=== PATIENT | female | born 1975 | race Caucasian/White ===

== ENCOUNTER 2017-08-01 17:20 | Emergency (ER) | payer OTHER, SELFPAY ==
[~2017-08-01] VITALS: Ht 170.2 cm; Wt 99.8 kg
--- NOTE | ~2017-08-01 | EKG ---
[place] [address] [address] [facility] [place] [address] ELECTROCARDIOGRAM REPORT Name: MARYLU DILLONN Room #: DEP Adelaida#: [id number] Admission: 08/01/17 Attend Phys: Discharge: 08/01/17 Date of : 73 Report #: [id number] THIS REPORT FOR: //name// [facility] ED Test Date: 2017-08-01 Test Time: 17:25:14 Pat Name: MARYLU DILLON Department: Room: Gender: F Plumber Supervisor: BELA : 1975 Requested By: Jose Aparicio Order Number: [id number] MD: Rickey Castanon Measurements Intervals [place] Rate: 57 P: 37 GA: 155 QRS: -4 QRSD: 98 T: 15 QT: 478 QTc: 466 Interpretive Statements Sinus bradycardia Poor R wave progression Compared to ECG 06/29/2015 19:21:54 No significant changes Electronically Signed On 08-05-2017 13:06:00 CDT by Rickey Castanon [email or web address] <ELECTRONICALLY SIGNED> By: Rickey Castanon MD, [facility] 08/05/17 1306 1725 24 Rickey Castanon MD, FACC /EPI
[~2017-08-01 17:20] MED LIST: NORCO 5-325 TA1 EACH PO; NORFLEX100 MG PO; PROBIOTIC1 EAC2; TRAZODONE 150150 M1 PO; TYLENOL325 MG PO; WELLBUTRIN SR100 MG PO; ZOLOFT100 MG PO
[2017-08-01] MEDS ORDERED: TOPAMAX50 MG PO (18:03)
[2017-08-01 18:33] LABS: ABSOLUTE NEUTROPHILS 3.9 thou/uL (1.4-8.2); BASOPHILS 0.6 % (0.0-2.0); EOSINOPHILS 4.9 % (0.0-3.0); HEMATOCRIT 37.3 % (37.0-47.0); HEMOGLOBIN 12.8 gm/dL (12.0-15.0); LYMPHOCYTES 33.2 % (24.0-44.0); MCH 29.5 pg (26.0-34.0); MCHC 34.5 g/dL (28.0-37.0); MCV 85.7 fL (80.0-100.0); MONOCYTES 8.5 % (1.0-8.0); PLATELET COUNT 234 thou/uL (150-400); POLYS 52.8 % (36.0-66.0); RBC 4.35 mil/uL (4.20-5.00); RDW 13.5 % (10.5-14.5); WBC 7.5 thou/uL (4.0-11.0)
[2017-08-01 18:46] LABS: ANION GAP 10 mmol/L (7-16); BUN 18 mg/dL (7-18); CALCIUM 8.9 mg/dL (8.5-10.1); CHLORIDE 106 mmol/L (98-107); CO2 23 mmol/L (21-32); CREATININE 0.9 mg/dL (0.6-1.0); GLUCOSE 98 mg/dL (74-106); POTASSIUM 3.4 mmol/L (3.5-5.1); SODIUM 139 mmol/L (136-145)
[2017-08-01 18:54] LABS: ALBUMIN 3.6 g/dL (3.4-5.0); SGOT 13 U/L (15-37); SGPT 24 U/L (30-65); TOTAL BILIRUBIN 0.2 mg/dL (<0.1-1.0); TOTAL PROTEIN 6.8 g/dL (6.4-8.2); TROPONIN-I < 0.04 ng/mL (<0.06)
[2017-08-01 20:27] VITALS: BP 129/75
== END 2017-08-01 20:35 | disposition home or self-care (01) ==
LOC: ER 17:20
PROVIDERS: Emergency Medicine
DX: R07.89 Other chest pain (principal); F17.210 Nicotine dependence, cigarettes, uncomplicated; F41.9 Anxiety disorder, unspecified; F32.9 Major depressive disorder, single episode, unspecified; Z90.49 Acquired absence of other specified parts of digestive tract; Z88.0 Allergy status to penicillin